=== PATIENT | female | born 1960 | race Caucasian/White ===

== ENCOUNTER → 2017-03-08 | Outpatient (CLI) | payer OTHER | END | disposition home or self-care (01) | LOC: MRI 15:13 | DX: M25.562 Pain in left knee (principal) | CPT/HCPCS: 73721 ==

== ENCOUNTER 2017-03-15 12:26 | Outpatient (CLI) | payer OTHER | END 2017-03-15 12:44 | disposition home or self-care (01) | LOC: NUCLEAR 12:26 | DX: M80.00XA Age-related osteoporosis with current pathological fracture, unspecified site, initial encounter for fracture (principal) ==

== ENCOUNTER 2024-09-04 09:10 | Outpatient (CLI) | payer OTHER | END 2024-09-04 09:13 | disposition home or self-care (01) | LOC: TOM 09:10 | PROVIDERS: ATTEND Internal Medicine Gastroenterology | DX: C18.9 Malignant neoplasm of colon, unspecified (principal); R19.5 Other fecal abnormalities ==